=== PATIENT | female | born 2000 | race Caucasian/White ===

== ENCOUNTER 2024-04-14 14:22 | Outpatient (AMB) | payer OTHER, SELFPAY ==
--- NOTE | 2024-04-14 14:28 | A.OFFPC_ITS ---
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 Ran out of Lexapro 3 weeks ago. Food Services Coordinator Required: No Allergies No Known Allergies Allergy (Verified 04/14/24 14:52) Medication List - Last Reconciled 04/14/24 by Elmira Ye PA-C escitalopram oxalate (Lexapro) 20 mg PO DAILY norgestimate-ethinyl estradiol 0.18/0.215/0.25 mg-35 mcg (28) (Tri-Blanka) 1 tab PO DAILY Tobacco use date assessed: 04/14/24 Dental Screening Dental Screen Date: 04/14/24 Did you have a dental visit in the last 12 months?: Yes Did you have a dental problem in the last 6 months where you did not have access to dental care?: No Was dental information given to patient?: Patient has dentist HPI 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 Psych: She states she has been on lexapro 20 mg for 2 years. She requested this gets refilled. States that her anxiety and depression are very well-controlled with the Lexapro. Denies any SI/HI. GI: follows with [facility] for her celiac disease. She has had a colonoscopy and 2 EGDs. States the last imaging was reassuring. Scada Engineer: scheduling with [facility] operator surface . Requests refills on OCP until she sees her OBGYN. PFSH Surgical History H/O wisdom tooth extraction Family History Other FH: mental illness Social History (Updated 04/14/24 @ 14:41 by Cherrie Griffin CMA) Housing: House Alcohol intake: current Patient Tobacco Use Status: Never used Tobacco e-Cigarette/Vaping Use: Never Used Second Hand Smoke Exposure: No Use of substances other than those prescribed or required for medical reasons: No service: No Current occupational status: student Cognitive needs: No Hearing needs: No Vision needs: Yes (glasses distance) Questionnaire PHQ-9 Over the last 2 weeks, how often have you been bothered by any of the following problems? 1. Little interest or pleasure in doing things: several days 2. Feeling down, depressed, or hopeless: several days 3. Trouble falling or staying asleep, or sleeping too much: more than half the days 4. Feeling tired or having little energy: more than half the days 5. Poor appetite or overeating: not at all 6. Feeling bad about yourself - or that you are a failure or have let yourself or your family down: several days 7. Trouble concentrating on things, such as reading the newspaper or watching television: not at all 8. Moving or speaking so slowly that other people could have noticed. Or the opposite - being so fidgety or restless that you have been moving around a lot more than usual: not at all 9. Thoughts that you would be better off or of hurting yourself in some way: not at all Total score: 7 Depression Screening Interpretation: Positive Depression Screening Done: Yes 89215 - PHQ-9 Billing: Yes Source: Developed by Drs. Flip Martinez, Lisa Hankins, Gagandeep Zayas and colleagues, with an educational janine from [employer]. Thrive Questionnaire Date Thrive assessed: 04/14/24 I am a: Patient What is your living situation today?: I have a steady place to live Within the past 12 months, did the food you bought not last and you didn't have the money to get more?: Never true Within the past 12 months, did you worry whether your food would run out before you got money to buy more?: Never true Do you have trouble paying for medicines?: No Do you have trouble getting transportation to medical appointments?: No Do you have trouble paying your heating and electricity bill?: No Do you have trouble taking care of your child, family member or friend?: No Do you have trouble with day-to-day activities such as bathing, preparing meals, shopping, managing finances, etc.?: No Are you currently unemployed and looking for a job?: No Are you interested in more education?: No Please select the resources that you would like help with: None Currently or been in a relationship where the following occur: No concerns reported THRIVE Score: 0 AUDIT C Alcohol Use Questionnaire (AUDIT-C) 1. How often do you have a drink containing alcohol?: Monthly or less 2. How many drinks containing alcohol do you have on a typical day when you are drinking?: 1 or 2 3. How often do you have six or more drinks on one occasion?: Never Total Score: 1 EMILY-7 AMB Questionnaire EMILY-7 Date EMILY - 7 assessed: 04/14/24 Feeling nervous, anxious, or on edge: 3 = Nearly every day Not being able to stop or control worryin = More than half the days Worrying too much about different things: 2 = More than half the days Trouble relaxin = More than half the days Being so restless that it is hard to sit still: 1 = Several days Becoming easily annoyed or irritable: 1 = Several days Feeling afraid as if something awful might happen: 2 = More than half the days Total EMILY-7 score (0-4 normal; 5-9 mild; 10-14 moderate; 15-21 severe): 13 Source: Developed by Drs. Flip Martinez, Lisa Hankins, Gagandeep Zayas and colleagues, with an educational janine from [employer]. EMILY-7 Assessment Billing EMILY-7 Assessment Tool: EMILY-7 Assessment 67696 Physical exam (Primary Care) Vital Signs: Last Vital Signs Pulse 74 04/14/24 14:38 BP 124/76 04/14/24 14:38 Pulse Ox 100 04/14/24 14:38 Oxygen Delivery Method Room Air 04/14/24 14:38 BMI result Body Mass Index 30.4 Tobacco/Smoking Status: Tobacco use Status Tobacco use date assessed 04/14/24 04/14/24 14:37 Patient Tobacco Use Status Never used Tobacco 04/14/24 14:41 e-Cigarette/Vaping Use Never Used 04/14/24 14:41 PHQ-9: PHQ-9 Score PHQ-9: Total score 7 04/14/24 14:42 Depression Screening Interpretation: Positive Thrive Assessment: Date of Thrive Assessment Date Thrive assessed 04/14/24 04/14/24 14:37 Currently or been in a relationship where the following occur: No concerns reported Const Orientation/consciousness: patient oriented x3 HENMT Ears: hearing grossly normal bilaterally and TM's normal bilaterally General nose exam: No nasal polyps present Face and sinus: Yes sinuses nontender Mouth: Normal oral and palatal mucosa present Eyes Pupils: Equal, round and reactive pupils present EOM: EOMs intact bilaterally Neck Neck: Yes full ROM and Yes no lymphadenopathy Thyroid: Thyroid normal Chest Chest palpation & inspection: normal inspection of the chest Resp Auscultation: clear to auscultation bilaterally Cardio Rate: regular rate Rhythm: regular rhythm Heart sounds: S1 normal heart sound present and S2 normal heart sound present Peripheral pulses: Peripheral pulses 2+ throughout GI Other: Soft, nontender Auscultation: normal bowel sounds Rectal Exam - Female: deferred General: Yes no CVA tenderness Back/Spine/Pelvis Other: Nontender Back: no CVA tenderness Skin General skin exam: no rashes or lesions noted Neuro General: patient oriented x3, gait normal, CN's II-XI intact bilaterally and deep tendon reflexes 2+ bilaterally Cranial nerves: Yes Equal, round and reactive pupils present Motor exam (neuro): 5/5 motor strength present throughout Sensory Exam: double simultaneous stimulation for sensation normal Coordination: [id number] test normal and Romberg test negative Extrem General: Yes normal to inspection and Yes full ROM Psych Affect: normal affect Attitude: cooperative Thought process: Normal thought process present Thought content: Normal thought content present Insight: Good insight present (Psych) Judgement: Good judgement present (Psych) Coding Level of Care Code New Pt Prev Care 18-39yr(59309 Diagnoses Routine general medical examination at a health care facility Z00.00 JESSY (iron deficiency anemia) D50.9 Celiac disease K90.0 Anxiety with depression F41.8 Additional Codes EMILY-7 Assessment Billing - EMILY-7 Assessment Tool: EMILY-7 Assessment [id number] ([id number]) PHQ-9 - 33856 - PHQ-9 Billing: Yes ([id number]) Assessment & Plan Assessment & Plan (1) Routine general medical examination at a health care facility: Code(s): Z00.00 - Encounter for general adult medical examination without abnormal findings Plan: Health maintenance reviewed. Labs ordered. (2) JESSY (iron deficiency anemia): Code(s): D50.9 - Iron deficiency anemia, unspecified Category: Medical Plan: Not currently on any supplements. States that symptoms and iron levels improved with discovering she has celiac disease. (3) Celiac disease: Code(s): K90.0 - Celiac disease Category: Medical Plan: Gluten free. Follows with GI (4) Anxiety with depression: Code(s): F41.8 - Other specified anxiety disorders Category: Medical Plan: Well-controlled with Lexapro. Refilled today. Orders: Orders Comprehensive Stanton. Panel Fast Today D50.9 - Iron deficiency anemia, unspecified, F41.8 - Other specified anxiety disorders, K90.0 - Celiac disease, Z01.89 - Encounter for other specified special examinations Lipid Panel Today D50.9 - Iron deficiency anemia, unspecified, F41.8 - Other specified anxiety disorders, K90.0 - Celiac disease, Z01.89 - Encounter for other specified special examinations Vitamin B12 and Folate Today D50.9 - Iron deficiency anemia, unspecified, F41.8 - Other specified anxiety disorders, K90.0 - Celiac disease, Z01.89 - Encounter for other specified special examinations Complete Blood Count Auto Diff Today D50.9 - Iron deficiency anemia, unspecified, F41.8 - Other specified anxiety disorders, K90.0 - Celiac disease, Z01.89 - Encounter for other specified special examinations IRON PROFILE Today D50.9 - Iron deficiency anemia, unspecified, F41.8 - Other specified anxiety disorders, K90.0 - Celiac disease, Z01.89 - Encounter for other specified special examinations TSH reflex Free T4 Today D50.9 - Iron deficiency anemia, unspecified, F41.8 - Other specified anxiety disorders, K90.0 - Celiac disease, Z01.89 - Encounter for other specified special examinations Medications: New escitalopram oxalate (Lexapro) 20 mg PO DAILY 90 tabs 3RF norgestimate-ethinyl estradiol 0.18/0.215/0.25 mg-35 mcg (28) (Tri-Blanka) 1 tab PO DAILY 84 tabs 2RF
[2024-04-14 14:38] VITALS: BP 124/76; PULSE 74; O2SAT 100; BMI 30.4
--- OUTSIDE RECORDS SUMMARY | 2024-04-14 18:19 | XMS_ITS | Encounter Summary ---
Author Organization [facility] Address [address] [place] [phone] Phone Care Team Providers Care Window Glass Installer Name Role Phone Noris Tyler MD Primary Care Provider [phone] Reason for Visit * Reason Comments Med Refill Encounter Details Date Type Department Care Team (Late st Contact Info) Description 01/10[facility] [address] [id number] Noris Tyler MD [address] [place] [id number] Anxiety and depression Social History Tobacco Use Types Packs/Day Years Used Date Smoking Tobacco: Never Smokeless Tobacco: Never Alcohol Use Standard Drinks/Week Comments Yes 0 (1 standard drink = 0.6 oz pur e alcohol) occasional, discussed risks Hunger/Food Answer Date Recorded In the last 12 months, did y ou or your family ever eat less than you felt you should because there wasn't enough money for food? No 02/20/2023 Stable Housing Answer Date Recorded Are you worried that in the next 2 months you may not have stable housing? No 02/20/2023 Transportation Concerns Answer Date Rec orded In the last 12 months, have you or your family ever had to go without healthcare because you didn't have a way to get there? No 02/20/2023 Hazards in Home Answer Date Recorded Think about the place you li ve. Do you have problems with any of the following? Pests (mice or roaches), mold, no/not working smoke detectors, water leaks, no window guards. No 2022 Financing Utilities Answer Date Recorde d In the last 12 months, has t he electric, gas, oil, or water company threatened to shut off your services in your home? No 02/20/2023 Safety at Home Answer Date Recorded Are you or your family worried about feeling saf e in your home? No 02/20/2023 Outside Support Answer Date Recorded Do you feel that you need mo re support from other people or programs to help you care for yourself or your family? No 02/20/2023 Understanding Health Concerns Answer Da te Recorded Do you need help understandi ng your or your child's healthcare needs (diagnosis, medications, plan, etc.)? No 02/20/2023 Financing Health Concerns Answer Date R ecorded In the last 12 months, was t here a time when your child needed to see a doctor or get medications or supplies but could not because of cost? No 02/20/2023 Missing School or Work Answer Date Marcos rded Did you or your child miss s chool or work because of a health problem that could have been avoided? No 02/20/2023 Comments No Sex and Gender Information Value Date Recorded Sex Assigned at Female 11/24/2019 12:07 PM EDT Legal Sex Female 6:22 PM EDT Gender Identity Female 11/24/2019 12:07 PM EDT Sexual Orientation Straight 02/20/2023 1: 52 PM EST documented as of this encounter Miscellaneous Notes * Telephone Encounter - Dolores Hart CMA - 01/11/2024 8:22 AM EDT No longer our pt Please refuse documented in this encounter Plan of Treatment Not on file documented as of this encounter Visit Diagnoses Diagnosis Anxiety and depression documented in this encounter Care Teams Window Glass Installer Relationship Specialty Start Date End Date Noris Tyler MD [address] [facility] [place] [address] PCP - General Pediatrics 05/08/[address] 10/21/17 documented as of this encounter
--- OUTSIDE RECORDS SUMMARY | 2024-04-14 18:19 | XMS_ITS ---
Author Name [facility] Organization Unknown History of Medication Use Medication Directions Dispensed Refills Start Date End Date Stat us tretinoin (RETIN-A) 0.05 % cream APPLY A PEA SIZED AMOUNT TO FACE TO TREAT ACNE. USE EVERY OTHER NIGHT FOR TWO WEEKS THEN NIGHTLY TOLERATED 07/09/2018 active Problems Problem Status Onset Date Problem Type Date of Resolution Source Encounter for issue of other medical certificate active EncounterDiagnosisAct [facility] Exertional asthma (HHS/HCC) active 2017-10-20 ProblemAct [facility] Anemia active 2019-11-[address] [facility] Dyspepsia active 2019-11-[address] [facility] Screening examination for pulmonary tuberculosis active EncounterDiagnosisAct [facility] Immunizations Vaccine Date Source Lot Number Status Flucelvax Trivalent PFS IM; Without Preservative (18+ mos) 12/22/2022 [facility] [id number] completed PPD Test 01/22/2024 [facility] [id number] completed PPD Test 11/07/2022 [facility] [id number] completed
--- OUTSIDE RECORDS SUMMARY | 2024-04-14 18:19 | XMS_ITS | Encounter Summary ---
Author Organization [facility] Address [address] [place] [phone] Phone Care Team Providers Care Icu Clerk Name Role Phone Noris Tyler MD Primary Care Provider [phone] Reason for Visit * Reason Comments Med Refill Encounter Details Date Type Department Care Team (Late st Contact Info) Description 03/17/[facility] [address] [address] Noris Tyler MD [address] [place] [phone] Anxiety and depression Social History Tobacco Use [...] encounter Miscellaneous Notes * Telephone Encounter - Gerda Barba LPN - 03/17/2024 2:17 PM EST Pt inactive--please refuse Thank you documented in this encounter Plan of Treatment Not on file documented as of this encounter Visit Diagnoses Diagnosis Anxiety and depression documented in this encounter Care Teams Icu Clerk Relationship Specialty Start Date End Date Noris Tyler MD [address] [facility] [place] [address] PCP - General Pediatrics 05/08/22 eye 10/21/17 documented as of this encounter
--- OUTSIDE RECORDS SUMMARY | 2024-04-14 18:19 | XMS_ITS | Clinical Summary ---
Author Organization [facility] Address [address] [place] [address] Phone Care Team Providers Care Pss Delivery Professional Name Role Phone Noris Tyler MD Primary Care Provider [phone] Allergies No known active allergies Medications albuterol HFA 108 (90 Base) MCG/ACT inhalerIndicati ons:Exertional asthma INHALE 2 PUFFS 20 MINUTES PRIOR TO EXERTION AND MAY REPEAT IF NEEDED 1 Units 0 Active tretinoin 0.1 % cream APPLY TO AFFECTED AREA(S) OF DRY SKIN DAILY AT BEDTIME 30 MINUTES AFTER WASHING 2 0 Active clindamycin-pamela zoyl peroxide 1-5% gel APPLY A PEA SIZED AMOUNT TO THE ENTIRE FACE EVERY MORNING 2 Active norgestimate-et hinyl estradiol (Tri-Estarylla) 0.18/0.215/0.25 MG-35 MCG per tabletIndicatio ns:Dysmenorrhea Take 1 tablet by mouth once daily. 84 tablet 4 3 Active escitalopram 10 MG tabletIndicatio ns:Anxiety and depression Take 1.5 tablets (15 mg total) by mouth daily. Diagnosis anxiety and depression 135 tablet 2 4 Active Active Problems Problem Noted Date Diagnosed Date Anxiety and depression 06/03/2022 Assessment & Plan (02/20/2023 1:53 PM EST): Will increase Lexapro a little, affirmed importance of therapy Assessment & Plan (09/22/2022 9:16 AM EDT): Doing well, will check in after school starts back up and stress increases Assessment & Plan (06/23/2022 11:05 AM EDT): Doing well overall and good start. Will increase dose to more effective level, and do phone or message update in 2-4 weeks Assessment & Plan (06/03/2022 2:23 PM EDT): recommended beginning SSRI and therapy. Discussed risks v benefits of treatment, potential side effects including black box warning of increased suicidal ideation, and slow nature of onset of action. Gave recommendations for director safety council in the area and reviewed how to initiate contact. Return in 3 weeks to assess medication start, sooner prn Celiac disease 11/24/2019 Overview (02/13/2021): 11/2019 normal TFTs, CMP, ESR. Hgb mild anemia but higher than cap reading. 09/2020 went to GI, testing for inflammatory bowel disease due to family history. recc avoid dairy. Repeating labs and screening for Celiac. Endoscopy and colonoscopy done 10/2020. Celiac disease confirmed on duodenal bx. Colonscopy normal. Adult GI f/u 01/2021 checking labs, advised PPS-23 vaccine Assessment & Plan (02/06/2021 10:16 AM EST): Follows gluten free diet as best as she can at [facility]. Has transferred to [facility]. Assessment & Plan (11/24/2019 12:10 PM EDT): Will begin with screening labs and gave her choice of very strict lactose/dairy avoidance for 2 weeks, or lactose breath test, will discuss with family. If all labs normal and lactose free doesn't improve symptoms, could consider PPI, and will follow up in about a month Anemia, unspecified 11/24/2019 Overview (11/25/2019): Cap 10, venous 11 11/2019 Assessment & Plan (02/18/2022 8:28 AM EST): Advised should resume iron supplements, as she reports low energy again Assessment & Plan (03/13/2021 1:32 PM EST): Hemoglobin up two points to 11.8! Can decrease the ferrous sulfate to just once daily, try taking after eating since she feels it bothers her stomach. Reviewed iron rich diet (she is gluten free due to celiac disease). Call back if not tolerating the iron tabs better, could try an alternative in that case. Will recheck hemoglobin yearly at physicals. It sounds like she is still catching up on sleep from a busy first semester in college. She will let us know if she does not feel back to normal at the end of a restful break. Recommend pneumovax, which is not available currently in [facility] office. I wrote this down for her so can ask for it at a pharmacy. Assessment & Plan (02/06/2021 10:49 AM EST): Hemoglobin 9.8 today. Last year had cbc diff which confirmed anemia and was otherwise normal. Is not taking her mvit with iron. Start iron supplement. Discussed taking it with orange juice and increasing intake of iron rich foods. Recheck one month. If hemoglobin not improving then, will recheck labs including iron studies. Assessment & Plan (11/24/2019 2:10 PM EDT): Gave iron-containing food handout. Also with screening labs for dyspepsia, will do confirmatory CBC Exertional asthma 10/20/2017 Assessment & Plan (02/18/2022 8:22 AM EST): No recent or current concerns Assessment & Plan (02/06/2021 10:16 AM EST): Rare Albuterol need. Assessment & Plan (11/09/2018 2:18 PM EDT): No recent or current issues Resolved Problems Problem Noted Date Diagnosed Date Resolved Date COVID-19 virus infection 02/06/202104/2021 Overview (02/06/2021): 02/2020 mild symptoms fully recovered. Assessment & Plan (02/06/2021 10:43 AM EST): 02/2020 mild symptoms fully recovered. Exercises without symptoms. UTI (urinary tract infection) 10/20/2017 Overview (10/20/2017): VCUG and YULISSA normal Encounters Date Type Department Care Team Description 03/17/2024 [facility] [address] [address] Noris Tyler MD Dysmenorrhea 03/17/2024 [facility]ill [facility] [address] [address] Noris Tyler MD Anxiety and depression from Last 3 Months Immunizations Name Administration Dates Next Due COVID-19 Pfizer, bivalent, 12+ years 02/18/2022 DTaP 10/13/2006, 5,04/14/2003,02/03,2002 HPV Vaccine 9 Valent 03/29/2015,11/23/2014,09/19 Hep A, ped/adol 10/21/2017,10/15/2016 Hep B, ped/adol 07/14/2003,2002,2002 Hib (PRP-T) 01/10/2004, 4,02/03/2003,12/23 IPV 10/13/2006, 5,02/03/2003,12/23 Influenza, injectable, quadrivalent 01/04/2013,1 ,12/16/2010 Influenza, injectable, quadr ivalent, preservative free 02/06/2021,11/24/2019,01/13/2018,02/24,11/22/2015,11/23/2014 MMR 10/13/2006,01/10/2004 Meningococcal B Bexsero 02/06/2021,10/04/2020 Meningococcal Conj (Menactra) MCV4P 11/09/2018,0 09/19/2014 Pneumococcal Conjugate 04/14/2003,02/14/2003,12/2002 Tdap 09/19/2014 Varicella 10/13/2006,10/09/2003 Family History Medical History Relation Name Comments No Known Problems Father Diabetes Maternal Grandfather Hypertension Maternal Grandfather Hyperlipidemia Maternal Grandmother Hypertension Maternal Grandmother Hypertension Mother Liver cancer Paternal Grandfather Hypertension Paternal Grandmother Relation Name Status Comments Brother Alive celiac, lactose intolerance Father Alive healthy age: 56 Maternal Grandfather Htn, DM type 2 age: 77 diagnosed with Hypertension, DMII WO CMP NT ST UNCNTR Maternal Grandmother Alive healthy age: 76 Mother Alive fibromyalgia Other Alive Siblings: healt hy brother 1988, sister [address] [facility]. Paternal Grandfather liver C a age: 53 diagnosed with MALIGNANT NEOPLASM NOS Paternal Grandmother Alive Htn, mi graines age: 75 diagnosed with Hypertension Sister Alive lactose intoler ance gluten intolerance Social History Tobacco Use Types Packs/Day Years [...] Orientation Straight 02/20/2023 1: 52 PM EST Last Filed Vital Signs Vital Sign Reading Time Taken Comments Blood Pressure 116/70 02/20/2023 1:06 PM EST Pulse - - Temperature 36.7 ??C (98.1 ??F) 07/06/2021 10:17 AM E DT Respiratory Rate - - Oxygen Saturation - - Inhaled Oxygen Concentration - - Weight 76.7 kg (169 lb) 02/20/2023 1:06 PM EST Height 166.4 cm (5' 5.5 ) 02/20/2023 1:06 PM EST Body Mass Index 27.7 02/20/2023 1:06 PM EST Plan of Treatment Health Maintenance Due Date Last Done Comments Influenza Vaccines (#1) 2023 12/23/19, 12/24/2021, 02/06/2021, Additional history exists COVID-19 Vaccine ( season) 2023 02/18/2022, 03/05/2021, 07/06/2020, Additional history exists DTaP,Tdap,and Td Vaccines (7 - Td or Tdap) 09/19/2024 09/19/2014, 10/13/2006, 04/08/2004, Additional history exists Pneumococcal Vaccine Aged Out 04/14/2003, 02/14/2003, 2002 No longer eligible based on patient's age to complete this topic Hepatitis B Vaccines Completed 07/14/2003, 2002, 2002 HIB Vaccines Completed 01/10/2004, 03/18, 02/03/2003, Additional history exists IPV Vaccines Completed 10/13/2006, 01/15, 02/03/2003, Additional history exists MMR Vaccines Completed 10/13/2006, 01/10/2004 Varicella Vaccines Completed 10/13/2006, 10/09/2003 HPV Vaccines Completed 03/29/2015, 11/14, 09/19/2014 Hepatitis A Vaccines Completed 10/21/2017, 10/16/19 17 Meningococcal Vaccine Completed 11/09/2018, 015 Men B Vaccine Completed 02/06/2021, 10/04/2020 Procedures * Due to [facility] law, this organization might not be sharing sensitive test results. Procedure Name Priority Date/Time Associated Diagnosis Comments CHLAMYDIA AND GONORRHEA, AMPLIFIED Routine 02/20/2023 1:46 PM EST Well adult exam from Last 3 Months or Most Recently Relevant to Health Maintenance Results * Due to [employer] law, this organization might not be sharing sensitive test results. * Chlamydia and Gonorrhoea, Amplified (02/20/2023 1:46 PM EST) Chlamydia Trachomatis, DNA Probe NEGATIVE (NEG) [facility] Comment: No Chlamydia Trachomatis RNA detected in this patient's sample ? (REFERENCE RANGE/NORMAL VALUE: NOT DETECTED) ? Note: This test uses cellar worker- mediated amplification method to detect rRNA from C. Trachomatis URINE GC AMP PROBE NEGATIVE (NEG) [facility] Comment: No Neisseria Gonorrhoeae RNA detected in this patient's sample ? (REFERENCE RANGE/NORMAL VALUE: NOT DETECTED) ? NOTE: This test uses cellar worker-mediated amplification method to detect rRNA from N.Gonorrhoeae. A negative result does not preclude infection. In the case of a negative urine result, testing of an endocervical(female) or urethral (male) specimen is recommended if there is high clinical suspicion of infection. Due to very high sensitivity of Nucleic Acid Amplification Test, false positive results may occur. Therefore, specimen handling is extremely important. In patients in whom the disease is unlikely, additional sample for testing should be considered after an initial positive result. The performance characteristics of this test have not been evaluated in children. The Aptima Combo2 assay is not intended for the evaluation of suspected sexual abuse or for other medico-legal indications. The ordering provider should assess if the patient had consensual sex without risk of sexual abuse. Consult the [facility] if needed. Contact phone number . Therapeutic failure or success cannot be determined with the Aptima Combo2 assay since nucleic acid may persist following appropriate antimicrobial therapy. The Centers for Disease Control and Prevention (CDC) recommends confirmatory retesting using culture or a different nucleic acid amplification test when positive results occur, if indicated. Testing performed or reported by [facility], a Service of [facility], [address] [place] [address] [place] [address] oCrnel Rg MD, Hand Etcher Helper [facility]# [id number] Urine (Urine) 02/20/2023 1:4 6 PM EST 02/20/2023 7:42 PM EST Noris Tyler MD LAB MICROBIOLOGY - GENERAL ORDER BRAIN Final Result [facility] from Last 3 Months or Most Recently Relevant to Health Maintenance Insurance AETNA AETNA Care Teams Pss Delivery Professional Relationship Specialty Start Date End Date Noris Tyler MD [address] [place] [address] PCP - General Pediatrics 05/08/[address] 10/21/17
--- OUTSIDE RECORDS SUMMARY | 2024-04-14 18:19 | XMS_ITS | Encounter Summary ---
Author Organization [facility] Address [address] [place] [address] Phone Care Team Providers Care Straight Tooth Gear Generator Operator Name Role Phone Noris Tyler MD Primary Care Provider [phone] Reason for Visit * Reason Comments Med Refill Encounter Details Date Type Department Care Team (Late st Contact Info) Description 03/17/2024 [facility] [address] [address] Noris Tyler MD [address] [place] [address] Dysmenorrhea Social History Tobacco Use Types Packs/Day Years [...] encounter Miscellaneous Notes * Telephone Encounter - Leonela Yepez LPN - 03/17/2024 2:18 PM EST Refused as pt has not been seen since 02/20/23 documented in this encounter Plan of Treatment Not on file documented as of this encounter Visit Diagnoses Diagnosis Dysmenorrhea documented in this encounter Care Teams Straight Tooth Gear Generator Operator Relationship Specialty Start Date End Date Noris Tyler MD 7 [facility] [place] [address] PCP - General Pediatrics 05/08/[address] 10/21/17 documented as of this encounter
--- OUTSIDE RECORDS SUMMARY | 2024-04-14 18:19 | XMS_ITS | Encounter Summary ---
Author Organization [facility] Address [address] [place] [address] Phone Care Team Providers Care Optimization Specialist Name Role Phone Noris Tyler MD Primary Care Provider [phone] Encounter Details Date Type Department Care Team (Late st Contact Info) Description 08/02/2017 Conversion Encounter [facility] [address] [place] [address] Social History Tobacco Use Types Packs/Day Years Used Date Smoking Tobacco: Never Assessed Comments Unknown Sex and Gender Information Value Date Recorded Sex Assigned at Female 11/24/2019 12:07 PM EDT Legal Sex Female 6:22 PM EDT Gender Identity Female 11/24/2019 12:07 PM EDT Sexual Orientation Straight 02/20/2023 1: 52 PM EST documented as of this encounter Plan of Treatment Not on file documented as of this encounter Visit Diagnoses Not on filedocumented in this encounter Care Teams Optimization Specialist Relationship Specialty Start Date End Date Noris Tyler MD [address] [place] [address] PCP - General Pediatrics 05/08/[address] 10/21/17 documented as of this encounter
== END 2024-04-14 15:03 | disposition home or self-care (01) ==
PROVIDERS: PCP Physician Assistant; Visit Provider Physician Assistant
DX: Z00.00 Encounter for general adult medical examination without abnormal findings (principal); D50.9 Iron deficiency anemia, unspecified; K90.0 Celiac disease; F41.8 Other specified anxiety disorders

== ENCOUNTER → 2024-04-14 14:22 | Outpatient (BNVA) | payer OTHER, SELFPAY | PROVIDERS: PCP Physician Assistant; Visit Provider Physician Assistant | DX: Z00.00 Encounter for general adult medical examination without abnormal findings (principal); D50.9 Iron deficiency anemia, unspecified; K90.0 Celiac disease; F41.8 Other specified anxiety disorders; Z79.899 Other long term (current) drug therapy | CPT/HCPCS: 96127 ==

== ENCOUNTER 2024-04-15 09:51 | Outpatient (REF) | payer OTHER, SELFPAY ==
--- OUTSIDE RECORDS SUMMARY | 2024-04-15 10:32 | XMS_ITS | Encounter Summary ---
Author Organization [facility] Address [address] [place] [address] Phone Care Team Providers Care Manager Of Care Name Role Phone Noris Tyler MD Primary Care Provider [phone] Reason for Visit * Reason Comments Med Refill Encounter Details Date Type Department Care Team (Late st Contact Info) Description 03/17/2024 [facility] [address] [address] Noris Tyler MD [address] [place] [address] Dysmenorrhea Social History Tobacco Use Types Packs/Day [...] Dysmenorrhea documented in this encounter Care Teams Manager Of Care Relationship Specialty Start Date End Date Noris Tyler MD 7 [place] [address] PCP - General Pediatrics 05/08/[address] 10/21/17 documented as of this encounter
--- OUTSIDE RECORDS SUMMARY | 2024-04-15 10:32 | XMS_ITS | Clinical Summary ---
Author Organization [facility] Address [address] [place] [address] Phone Care Team Providers Care Special Education Case Manager Name Role Phone Noris Tyler MD Primary Care Provider [phone] Allergies No known active allergies Medications albuterol [...] of onset of action. Gave recommendations for day porter in the area and reviewed how to [...] diet as best as she can at [facility]. Has transferred to [facility]. Assessment & Plan (11/24/2019 12:10 [...] Team Description 03/17/2024 [facility]ill [facility] [address] [address] Noris Tyler MD Dysmenorrhea 03/17/2024 [facility] [address] [address] Noris Tyler MD Anxiety and depression from [...] Siblings: healt hy brother 1988, sister 1991 [facility]. Paternal Grandfather liver C a [...] Completed 02/06/2021, 10/04/2020 Procedures * Due to [facility] law, this organization might not be sharing sensitive test results. Procedure Name Priority Date/Time Associated Diagnosis Comments CHLAMYDIA AND GONORRHEA, AMPLIFIED Routine 02/20/2023 1:46 PM EST Well adult exam from Last 3 Months or Most Recently Relevant to Health Maintenance Results * Due to [employer] law, this organization might not be sharing sensitive test results. * Chlamydia and Gonorrhoea, Amplified (02/20/2023 1:46 PM EST) Chlamydia Trachomatis, DNA Probe NEGATIVE (NEG) [facility] Comment: No Chlamydia Trachomatis RNA detected in this patient's sample ? (REFERENCE RANGE/NORMAL VALUE: NOT DETECTED) ? Note: This test uses tool turret lathe set up operator- mediated amplification method to detect rRNA from C. Trachomatis URINE GC AMP PROBE NEGATIVE (NEG) [facility] Comment: No Neisseria Gonorrhoeae RNA detected in this patient's sample ? (REFERENCE RANGE/NORMAL VALUE: NOT DETECTED) ? NOTE: This test uses tool turret lathe set up operator-mediated amplification method to detect rRNA from N.Gonorrhoeae. [...] without risk of sexual abuse. Consult the [facility] if needed. Contact phone number . Therapeutic failure or success cannot be determined with the Aptima Combo2 assay since nucleic acid may persist following appropriate antimicrobial therapy. The Centers for Disease Control and Prevention (CDC) recommends confirmatory retesting using culture or a different nucleic acid amplification test when positive results occur, if indicated. Testing performed or reported by [facility], a Service of [facility], [address] [place] [address] [place] [address] Cornel Rg MD, Cloth Picker [facility]# [id number] Urine (Urine) 02/20/2023 1:4 6 PM EST 02/20/2023 7:42 PM EST Noris Tyler MD LAB MICROBIOLOGY - GENERAL ORDER BRAIN Final Result [facility] from Last 3 Months or Most Recently Relevant to Health Maintenance Insurance AETNA AETNA Care Teams Special Education Case Manager Relationship Specialty Start Date End Date Noris Tyler MD [address] [place] [address] PCP - General Pediatrics 05/08/[address] 10/21/17
--- OUTSIDE RECORDS SUMMARY | 2024-04-15 10:32 | XMS_ITS | Encounter Summary ---
Author Organization [facility] Address [address] [place] [address] Phone Care Team Providers Care Civil Process Server Name Role Phone Noris Tyler MD Primary Care Provider [phone] Encounter Details Date Type Department Care Team (Late st Contact Info) Description 08/02/2017 Conversion Encounter [facility] [address] [place] [address] Social History Tobacco Use Types Packs/Day Years [...] on filedocumented in this encounter Care Teams Civil Process Server Relationship Specialty Start Date End Date Noris Tyler MD [address] [place] [address] PCP - General Pediatrics 05/08/[address] 10/21/17 documented as of this encounter
--- OUTSIDE RECORDS SUMMARY | 2024-04-15 10:32 | XMS_ITS | Encounter Summary ---
Author Organization [facility] Address [address] [place] [address] Phone Care Team Providers Care Oil Mixer Name Role Phone Noris Tyler MD Primary Care Provider [phone] Reason for Visit * Reason Comments Med Refill Encounter Details Date Type Department Care Team (Late st Contact Info) Description 03/17/2024 [facility] [address] [address] Noris Tyler MD [address] [place] [address] Anxiety and depression Social History Tobacco Use [...] depression documented in this encounter Care Teams Oil Mixer Relationship Specialty Start Date End Date Noris Tyler MD 7 [facility] [place] [address] PCP - General Pediatrics 05/08/22 eye 10/21/17 documented as of this encounter
--- OUTSIDE RECORDS SUMMARY | 2024-04-15 10:32 | XMS_ITS | Encounter Summary ---
Author Organization [facility] Address [address] [place] [address] Phone Care Team Providers Care Band Saw Runner Name Role Phone Noris Tyler MD Primary Care Provider [phone] Reason for Visit * Reason Comments Med Refill Encounter Details Date Type Department Care Team (Late st Contact Info) Description 01/10/2024 [facility] [address] [address] Noris Tyler MD [address] [place] [address] Anxiety and depression Social History Tobacco Use [...] depression documented in this encounter Care Teams Band Saw Runner Relationship Specialty Start Date End Date Noris Tyler MD 7 [facility] [place] [address] PCP - General Pediatrics 05/08/[address] 10/21/17 documented as of this encounter
[2024-04-15 12:20] LABS: MANUAL DIFF FLAG NO
[2024-04-15 12:36] LABS: Basophils Absolute Auto 0.1 X10*3/uL (0.0-0.2); Basophils Percent Auto 0.7 % (0-2); Eosinophils Absolute Auto 0.2 X10*3/uL (0.0-0.4); Eosinophils Percent Auto 2.7 % (0-4); Hematocrit 37.7 % (37.0-47.0); Hemoglobin 12.3 g/dl (12.0-16.0); Imm Gran Abs Auto 0.02 X10*3/uL (0.00-0.03); Imm Gran Pct Auto 0.3 % (0.0-0.4); Lymphocytes Absolute Auto 1.4 X10*3/uL (1.2-4.9); Lymphocytes Percent Auto 18.6 % (20-40); Mean Corpuscular HGB Conc 32.6 g/dl (31.0-35.0); Mean Corpuscular Hemoglobin 27.1 pg (27.0-33.0); Mean Platelet Volume 10.3 fL (9.4-12.3); Monocytes Absolute Auto 0.6 X10*3/uL (0.1-1.2); Monocytes Percent Auto 7.9 % (2-11); Neutrophils Absolute Auto 5.2 x10*3/uL (2.0-8.3); Neutrophils Percent Auto 69.8 % (45-73); Platelet Count 280 X10*3/uL (160-400); Red Blood Count 4.54 X10*6/uL (4.20-5.50); Red Cell Distribution Width 13.8 % (11.0-16.0); White Blood Count 7.5 X10*3/uL (4.8-10.8)
[2024-04-15 13:07] LABS: Alanine Aminotransferase 36 U/L (0-31); Albumin Level 4.3 g/dL (3.5-5.0); Alkaline Phosphatase 87 U/L (39-117); Anion Gap 9 (12-20); Aspartate Amino Transferase 29 U/L (5-31); Bilirubin Total 0.2 mg/dL (0.0-1.0); Blood Urea Nitrogen 14 mg/dL (9-16); Calcium 9.8 mg/dL (8.4-10.2); Carbon Dioxide 27 mmol/L (22-29); Chloride 108 mmol/L (96-108); Cholesterol 182 mg/dL (<200); Estimated Glomerular Filt Rate > 60; Glucose Fasting 92 mg/dL (60-99); HDL Cholesterol 63 mg/dL (>40); Iron 27 mcg/dL (30-160); LDL Cholesterol Calculated 107 mg/dL (<100); Percent Iron Saturation 9 % (15-50); Potassium 4.3 mmol/L (3.3-5.1); Sodium 140 mmol/L (135-145); Total Iron Binding Capacity 316 mcg/dL (228-428); Total Protein 7.6 g/dL (6.5-8.0); Triglycerides 63 mg/dL (<150); Unsaturated Iron Binding 289 ug/dL
[2024-04-15 13:15] LABS: TSH reflex Free T4 1.15 uIU/mL (0.32-4.0)
[2024-04-15 13:20] LABS: Folate 6.4 ng/mL (> or = 4.0); Vitamin B12 477 pg/mL (200-900)
== END 2024-04-15 09:52 | disposition home or self-care (01) ==
LOC: HO.WFDLDS 09:51
PROVIDERS: Visit Provider Physician Assistant
DX: Z01.89 Encounter for other specified special examinations (principal); D50.9 Iron deficiency anemia, unspecified; K90.0 Celiac disease; F41.8 Other specified anxiety disorders
CPT/HCPCS: 36415; 80053; 80061; 82607; 82746; 83540; 84443; 85025